=== PATIENT | female | born 1935 | race Caucasian/White ===

== ENCOUNTER 2017-12-17 18:06 | Emergency (ER) | payer MEDICARE, OTHER ==
[~2017-12-17] VITALS: Ht 165.1 cm; Wt 70.5 kg
[2017-12-17 18:21] VITALS: Ht 165.1 cm; Wt 70.5 kg
[2017-12-17 20:58] VITALS: BP 176/95
== END 2017-12-17 20:58 | disposition home or self-care (01) ==
LOC: D.ER 18:06
DX: S61.211A Laceration without foreign body of left index finger without damage to nail, initial encounter (principal); W26.8XXA Contact with other sharp object(s), not elsewhere classified, initial encounter; Y93.89 Activity, other specified; Y92.019 Unspecified place in single-family (private) house as the place of occurrence of the external cause; I10 Essential (primary) hypertension

== ENCOUNTER 2017-12-26 08:35 | Emergency (ER) | payer MEDICARE, OTHER ==
[~2017-12-26] VITALS: Ht 165.1 cm; Wt 70.5 kg
[2017-12-26 08:39] VITALS: Ht 165.1 cm; Wt 70.5 kg
[2017-12-26 08:56] VITALS: BP 130/54
== END 2017-12-26 08:57 | disposition home or self-care (01) ==
LOC: D.ER 08:35
DX: S61.412D Laceration without foreign body of left hand, subsequent encounter (principal); X58.XXXD Exposure to other specified factors, subsequent encounter; Z48.02 Encounter for removal of sutures